=== PATIENT | female | born 1945 | race Caucasian/White ===

== ENCOUNTER 2021-10-11 02:11 | Day surgery (SDC) | payer MEDICARE, SELFPAY ==
--- NOTE | 2021-10-10 14:26 | PC.NURSE ---
Report to the Outpatient Waiting Room, entrance under the green pavilion located off [facility], at time _1245 on date _10/11/21 . OR Time: _1445 . - You and your visitor will be asked a series of questions to screen for COVID 19 for your protection. - Only one visitor is allowed at this time. - The patient visitor is requested to leave or wait in car when not with patient. - A mask is required within the hospital. Patients may have clear liquids (water, carbonated beverages, clear teas, apple juice) until 3 hours prior to surgery with a maximum of 20 ounces. - No food from midnight until time of surgery - Infants may have breast milk until 4 hours before surgery, infant formula 6 hours prior to surgery. - Children will be allowed to drink immediately following surgery. If applicable, please bring a bottle or sippy cup to assist with drinking. Juice, water, soda, and popsicles are readily available. For infants on formula, please bring formula the day of surgery. Pacifiers are allowed. Take the following medications with a SIP of water the morning of surgery: ____LEVOTHYROXINE Medications to discontinue per physician ___ALL VITAMINS AND SUPPLEMENTS Date to take last dose Please no make-up, nail croatian, hairspray, perfume, deodorant, or body powder the day of surgery. No jewelry (including any body piercings) or valuables the day of surgery, leave them at home. Please take a shower or bath the night before, or the morning of, surgery with an antibacterial soap. Wear comfortable, loose fitting clothing. Children are encouraged to wear pajamas. - Jewelry must be removed prior to entering the operating room. Rings and piercings that are not removed may be cut off. - The hospital will not accept responsibility for valuables. - Please leave all valuables, including medications, at home the day of surgery. If you are going home after surgery, a licensed over the road driver must drive you home. - NO public transportation without another adult. - We recommend that an adult stay with you for 24 hours following discharge. - We also recommend that you do not drive, make important decision, drink alcoholic beverages, or take any drugs that were not prescribed by your health care provider for at least 24 hours after your discharge time. For Pediatric surgeries, we recommend two adults accompany the child home (only one inside the building at this time). Follow any additional instructions given to you from your surgeon. If you or anyone in your household have experienced Covid symptoms in the past week, please notify your surgeon or the nurse liaison at the phone number below for possible testing. Telephone instructions given to _PATIENT and asked if any additional questions and then verbalized understanding. Patient advised to call surgeon office or pre surgery nurse liaison [phone] if any additional questions.
[2021-10-10 14:32] VITALS: BMI 24.7
--- NOTE | ~2021-10-11 | XR_ITS ---
XR fluoroscopy no charge 10/11/2021 14:46 Indication: Stone extraction TECHNIQUE: Fluoroscopy used during stone extraction performed by [Daryn Rowe MD] on 10/11. 6 seconds of fluoroscopy time with 2 images images captured. FINDINGS: Correlate with procedure note. IMPRESSION: Fluoroscopy used during ureteral stone extraction. Correlate with procedural report. Reviewed, dictated and finalized at location A. IMPRESSION: Fluoroscopy used during ureteral stone extraction. Correlate with p rocedural report.
--- NOTE | 2021-10-11 06:55 | WPDHPUPDATE1 ---
History and Physical Update Update Date/Time: 10/11/21 06:55 History and Physical has been reviewed, including an updated exam of the patient. There are NO changes in the patient's condition. Risks, benefits, and alternatives have been discussed and questions answered. Patient agrees to proceed with procedure.
[2021-10-11 13:08] VITALS: BP 172/75; PULSE 75; RESP 16; TEMP 36.1; O2SAT 99
--- NOTE | 2021-10-11 13:27 | P.PNAN_ITS ---
Anes - Initial Pre Proc Eval Procedure: Operation Date: 10/11/21 14:45 Proposed Procedures p Cystoscopy, Left Ureteroscopy, Stone Extraction, Possible Stent Placement, Possible Holmium Laser Lithotripsy - Daryn Rowe MD Date/Time: 10/11/21 13:27 Surgeon: Daryn Rowe MD Pre Op Diagnosis: ureteral stone Patient Data Age: 76 Gender: F Height: 1.57 m Weight: 61.25 kg Allergies Allergy/AdvReac Type Severity Reaction Status Date / Time No Known Allergies Allergy Unknown Unverified 10/11/21 13:25 Home Medications Medication Instructions Recorded Confirmed Type cephalexin 500 mg capsule 1 cap PO BID 10/10/21 10/10/21 History cyanocobalamin (vitamin B-12) 1,000 ml subcut WEEKLY 10/10/21 10/10/21 History 1,000 mcg/mL injection solution donepezil 5 mg tablet 1 tablet PO HS 10/10/21 10/10/21 History hydrocodone 5 mg-acetaminophen 325 1 tablet PO Q6H PRN Pain 10/10/21 10/10/21 History mg tablet levothyroxine 50 mcg tablet 50 mcg PO DAILY 10/10/21 10/10/21 History lisinopril 10 mg tablet 1 tablet PO HS 10/10/21 10/10/21 History ondansetron 4 mg disintegrating 1 tablet PO PRN PRN Nausea 10/10/21 10/10/21 History tablet simvastatin 20 mg tablet 1 tablet PO HS 10/10/21 10/10/21 History trazodone 50 mg tablet 1 tablet PO HS 10/10/21 10/10/21 History zolpidem 5 mg tablet 1 tablet PO HS PRN Insomnia 10/10/21 10/10/21 History ketorolac 10 mg tablet 1 tablet PO PRN 10/11/21 10/11/21 History Patient hx anesthesia problems: none Family hx anesthesia problems: none Results Review: All pre-operative results and documents have been reviewed as part of the pre- operative evaluation. [facility] Past Medical History Medical History (Updated 10/11/21 @ 13:27 by Nikolai Villareal DO) Asthma Hyperlipidemia Hypertension Hypothyroidism Short-term memory loss Social History Social History Smoking status: Never smoker Living arrangements: with family Spiritual care concerns: No Anes - Eval Final PreProcedure Day of Procedure 10/11/21 13:27 Patient weight: obese Heart: regular rate and rhythm Lungs: clear to auscultation Airway: Mallampati scale class II Neurological: alert and oriented Last oral intake: >/= 8 hours ASA classification: III Emergent: no Anesthetic plan: proceed Anesthesia type and monitoring: general GIVS and standard monitoring Results Review: All pre-operative results and documents have been reviewed as part of the pre- operative evaluation. Informed Consent: The patient's anesthetic plan and its attendant risks and benefits were discusse d with the patient/family/POA. Questions were solicited and answers provided to the satisfaction of the patient/family/POA.
[2021-10-11] MEDS: LACTATED RINGERS 1,000 ML 30 ML IV CONT (13:55)
[2021-10-11] MEDS: ceFAZolin 2 GM/D5W 50 ML 2 GM/50 ML BAG IVPB (14:21)
[2021-10-11] MEDS: LIDOCAINE HCL 2% GEL UROJET 10 ML PKG MUCOUS MEM (14:36)
[2021-10-11] MEDS: KETOROLAC 15 MG/ML VIAL (*BKC) IV PUSH (14:44)
[2021-10-11 14:49] VITALS: BP 131/67; PULSE 90; RESP 14; O2SAT 97
--- NOTE | 2021-10-11 14:49 | W.PM.PROC2 ---
Procedure Note - Detailed Date of Procedure 10/11/21 Pre-op Diagnosis Left ureteral stone Post-op Diagnosis Same Procedure Performed Cystoscopy, left ureteroscopy with stone extraction Surgeon Daryn Rowe MD Description of Procedure The patient was brought to the operative suite where she is prepped and draped in a routine sterile fashion while in the dorsal lithotomy position after the uneventful induction of a general LMA anesthetic. A 19F rigid cystoscope was placed in the bladder. The patient had no evidence of urethral stricture or bladder neck contracture. The bladder mucosa was endoscopically normal without hyperemia or neoplasm. There was a single, orthotopic ureteral orifice bilaterally. A 0.035 glidewire was advanced into the left renal pelvis under fluoroscopy. The distal ureter was dilated with an 8F/10F ureteral dilator. Ureteroscopy was undertaken with a short, tapered, semi-rigid ureteroscope and the stone was extracted with ease using a 1.9F Escape disposable stone basket. Due to the ease of this manipulation I opted not to place a ureteral stent. The patient's bladder was emptied and was taken to the recovery room having tolerated this procedure well. Pathology Yes Complications No immediate complications Condition Stable Disposition PACU
[2021-10-11 15:15] VITALS: BP 168/82; PULSE 83; RESP 16
[2021-10-11 15:35] VITALS: BP 178/81; PULSE 80; RESP 16
== END 2021-10-11 15:50 | disposition home or self-care (01) ==
PROVIDERS: PCP Internal Medicine; Visit Provider Urology
PROC: (CPT 52352; principal; 2021-10-11 14:45)
DX: N20.1 Calculus of ureter (principal); R30.0 Dysuria; I10 Essential (primary) hypertension; E03.9 Hypothyroidism, unspecified; K50.90 Crohn's disease, unspecified, without complications; M81.0 Age-related osteoporosis without current pathological fracture
CPT/HCPCS: 52352; 82365; 88300; 99199; A9270; C1769; J0690; J1885; J2704; J3010; J7120